=== PATIENT | female | born 1935 | race Caucasian/White ===

== ENCOUNTER 2020-06-25 23:24 | Inpatient (IN) | payer MEDICARE ==
[~2020-06-25] VITALS: Ht 165.1 cm; Wt 72.6 kg
[2020-06-26 00:37] LABS: HEMOGLOBIN 11.7 gm/dl (12.3-15.3); RED BLOOD COUNT 4.18 M/UL (4.00-5.10); WHITE BLOOD COUNT 9.8 K/UL (4.5-11.0)
[2020-06-26 01:23] LABS: BUN/CREATININE RATIO 16 (0-10)
[2020-06-26] MEDS ORDERED: LOPRESSOR 50 MG50 MG PO (10:31)
[2020-06-26] MEDS ORDERED: CETIRIZINE HCL10 MG PO (10:32)
[2020-06-26] MEDS ORDERED: KEPPRA 250 MG250 MG PO (10:32)
[2020-06-26] MEDS ORDERED: CYANOCOBAL1000 MCG/1 INJ (10:34)
[2020-06-26] MEDS ORDERED: DESYREL 50 MG T50 MG PO (10:34)
[2020-06-26] MEDS ORDERED: MELATONIN3 MG PO (10:35)
[2020-06-26] MEDS ORDERED: MYCOSTATIN CREA15 GM TOP (10:36)
[2020-06-26] MEDS ORDERED: ATORVASTATIN CA20 MG PO (10:36)
[2020-06-26] MEDS ORDERED: LEVOTHYROXINE75 MCG PO (10:37)
[2020-06-26] MEDS ORDERED: COLACE100 MG PO (10:38)
[2020-06-26] MEDS ORDERED: VITAMIN D3125 MC1 PO (10:39)
[2020-06-26] MEDS ORDERED: FLOVENT 440.088 GM/I (10:40)
[2020-06-26] MEDS ORDERED: PACERONE200 MG PO (10:41)
[2020-06-27 05:11] LABS: HEMOGLOBIN 10.2 gm/dl (12.3-15.3)
[2020-06-27 05:17] LABS: RED BLOOD COUNT 3.58 M/UL (4.00-5.10)
[2020-06-28 03:56] LABS: HEMOGLOBIN 9.4 gm/dl (12.3-15.3); RED BLOOD COUNT 3.39 M/UL (4.00-5.10); WHITE BLOOD COUNT 13.6 K/UL (4.5-11.0)
[2020-06-28 19:27] LABS: HEMOGLOBIN 9.2 gm/dl (12.3-15.3)
[2020-06-29 03:12] LABS: HEMOGLOBIN 8.7 gm/dl (12.3-15.3); RED BLOOD COUNT 3.13 M/UL (4.00-5.10); WHITE BLOOD COUNT 9.2 K/UL (4.5-11.0)
[2020-06-30 03:25] LABS: HEMOGLOBIN 8.1 gm/dl (12.3-15.3); RED BLOOD COUNT 2.85 M/UL (4.00-5.10)
[2020-07-01] MEDS ORDERED: ELIQUIS 2.5 MG2.5 MG PO (11:48)
[2020-07-01] MEDS ORDERED: OXYCODONE HCL5 MG PO (11:48)
--- NOTE | 2020-07-01 15:56 | NUR ---
REPORT CALLED TO [facility] AT THIS TIME. I SPOKE WITH PAWEL ALEMAN. SHE VERBALIZED UNDERSTANING OF REPORT AND PLAN OF CARE.
== END 2020-07-01 19:30 | DRG 521 ==
LOC: ER1 23:24 → M/S 06-26 02:01 → CDU 06-26 02:01 → M/S 06-26 18:24
PROVIDERS: Emergency Medicine; Internal Medicine; Internal Medicine Nephrology; Orthopaedic Surgery; ADMIT Internal Medicine
PROC: B24BZZ4 Ultrasonography of Heart with Aorta, Transesophageal (ICD-10-PCS; 2020-06-26)
PROC: 0SRS0JZ Replacement of Left Hip Joint, Femoral Surface with Synthetic Substitute, Open Approach (ICD-10-PCS; principal; 2020-06-26 16:32)
DX: S72.012A Unspecified intracapsular fracture of left femur, initial encounter for closed fracture (principal); N17.0 Acute kidney failure with tubular necrosis; I69.354 Hemiplegia and hemiparesis following cerebral infarction affecting left non-dominant side; I50.32 Chronic diastolic (congestive) heart failure; Z20.822 Contact with and (suspected) exposure to COVID-19; D50.9 Iron deficiency anemia, unspecified; E03.9 Hypothyroidism, unspecified; N31.9 Neuromuscular dysfunction of bladder, unspecified; G40.909 Epilepsy, unspecified, not intractable, without status epilepticus; H35.30 Unspecified macular degeneration; E53.8 Deficiency of other specified B group vitamins; E55.9 Vitamin D deficiency, unspecified; F32.9 Major depressive disorder, single episode, unspecified; I11.0 Hypertensive heart disease with heart failure; F41.9 Anxiety disorder, unspecified; E66.9 Obesity, unspecified; G47.00 Insomnia, unspecified; W18.39XA Other fall on same level, initial encounter; I48.91 Unspecified atrial fibrillation; Z79.01 Long term (current) use of anticoagulants; Z95.810 Presence of automatic (implantable) cardiac defibrillator; Z68.26 Body mass index [BMI] 26.0-26.9, adult
CPT/HCPCS: ECHO; 36415; 70450; 71045; 73502; 73552; 80048; 80053; 80307; 81001; 82550; 82553; 82570; 82607; 82728; 82746; 83540; 83550; 83874; 84132; 84133; 84156; 84300; 84439; 84443; 84484; 85014; 85018; 85025; 85027; 85610; 85730; 86850; 86900; 86901; 87081; 87880; 89050; 93005; 93306; 94760; 96374; 96375; 96376; 97110; 97110-GP-CQ; 97116-GP-CQ; 97161; 97166; 97530; 97530-GP-CQ; 99285; C1776; J0690; J1100; J1756; J2001; J2270; J2405; J2704; J2710; J2795; J3010; J7030; J7120; P9047; U0002